=== PATIENT | female | born 1960 | race Caucasian/White ===

== ENCOUNTER 2016-10-07 13:55 | Emergency (ER) | payer MEDICARE, OTHER ==
[2016-10-07] MEDS ORDERED: IPRATROPIUM/ALBUTEROL SULFATE 3 ML AMPUL.NEB NEB ONE (14:07)
[2016-10-07] MEDS ORDERED: ACETAMINOPHEN 500 MG TABLET PO ONE (14:08)
[2016-10-07] MEDS ORDERED: FLUTICASONE/SALMETEROL 250-50 INHALER IH ONE (15:05)
--- NOTE | 2016-10-07 15:05 | ED Physician Documentation ---
Dyspnea - HISTORIAN Historian: patient - HPI Stated Complaint: sore throat, bosy aches Chief Complaint: Dyspnea Onset: days ago Duration: continues in ED Initiating Event: upper respiratory illness Associated Symptoms: chills, fever, productive cough Further Comments: yes (56 year old female patient presents with complaints of fever, chills, sore throat, productive cough, and dyspnea with exerction. Reports symptoms began on , becoming worse.) - ROS CONST: no problems EYES/ENT: none GI/: none NEURO/PSYCH: denies: headache MS/SKIN/LYMPH: none - PAST HX Lung Disease: COPD Surgeries/Procedures: other (T&A, myringotomy tubes, ovarian cyst removed) Other History: other (Seizures) Allergies/Adverse Reactions: Allergies Allergy/AdvReac Type Severity Reaction Status Date / Time Penicillins Allergy Verified 10/07/16 14:18 Sulfa (Sulfonamide Allergy Verified 10/07/16 14:18 Antibiotics) Home Medications: Ambulatory Orders Medication Instructions Recorded Phenytoin Sodium Extended 100 mg PO TID 03/21/12 [Dilantin] Albuterol Sulfate [Ventolin HFN] 2.5 mg NEB Q4 #25 vial 10/07/16 Ipratropium/Albuterol Sulfate 3 ml NEB BID #25 ampul.neb 10/07/16 [Duoneb] Prednisone 10 mg PO DAILY #30 tablet 10/07/16 - SOCIAL HX Smoking History: cigarettes (trying to quit) - FAMILY HX Family History: denies: none - VITAL SIGNS Vital Signs: Vital Signs Temp Pulse Resp BP Pulse Ox 99.9 F H 72 15 162/94 97 10/07/16 14:22 10/07/16 14:22 10/07/16 14:22 10/07/16 14:22 10/07/16 14:22 - REVIEWED ASSESSMENTS Nursing Assessment Reviewed: Yes Vitals Reviewed: Yes Progress - Progress Progress: Patient states she is out of her albuterol. States she does not have any maintenance inhalers at home. Will start on advair. Solumedrol given in ER. Faint inspiratory wheezes at discharge, patient states she can breath much better. Reviewed discharge instructions. Verbalized understanding. ED Results Lab/Radiology - Radiology Radiology Impressions: Underwear Finisher to anterior and lateral chest Clinical history: Cough Technique: Pa and lateral standing upright radiographs Findings: The lung smith are hyperinflated with flattening of the hemidiaphragms. There is no mass infiltrate or pleural effusions. Thoracic spondylosis is present. There is dextroscoliosis. Nipple shadows overlie the lung bases. Impression: Hyperinflation No acute infiltrate - Orders Orders: ED Orders Category Date Time Status CHEST 2 VIEW [CHEST P.A.&LAT 2 VIEWS] [RAD] Stat Exams 10/07/16 Ordered CBC/PLATELET/DIFF Stat Lab 10/07/16 14:39 Received CMP Stat Lab 10/07/16 14:39 Received Rapid Strep [GRP A STREP SCREEN] Stat Lab 10/07/16 Ordered Acetaminophen [Tylenol Extra Strength] Med 10/07/16 14:08 Discontinued 1,000 mg PO NOW ONE Ipratropium/Albuterol Sulfate [Duoneb] Med 10/07/16 14:07 Discontinued 3 ml NEB NOW ONE Dyspnea Physical Exam - EXAM General Appearance: moderate distress EENT: eye inspection normal, ENT inspection normal, pharynx normal, no signs of dehydration, HIREN, no nystagmus, TM's nml Respiratory: no pain on inspiration, speaks full sentences, prolonged expirations, wheezes (inspiratory), rhonchi. No: stridor CVS: reg. 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 Neuro/Psych: oriented x3, CN's nml as tested, motor nml, sensation nml, mood/ affect nml Discharge Clincal Impression: COPD exacerbation Prescriptions: Albuterol Sulfate [Ventolin HFN] 2.5 mg NEB Q4 #25 vial Ipratropium/Albuterol Sulfate [Duoneb] 3 ml NEB BID #25 ampul.neb Prednisone 10 mg PO DAILY #30 tablet Referrals: Ang Connor MD [Primary Care Provider] - 2 Days Home Medications: Ambulatory Orders Phenytoin Sodium Extended [Dilantin] 100 mg PO TID 03/21/12 Albuterol Sulfate [Ventolin HFN] 2.5 mg NEB Q4 #25 vial 10/07/16 Ipratropium/Albuterol Sulfate [Duoneb] 3 ml NEB BID #25 ampul.neb 10/07/16 Prednisone 10 mg PO DAILY #30 tablet 10/07/16 Condition: Stable Disposition: 01 HOME, SELF-CARE Decision to Admit: NO Decision Time: 16:15
[2016-10-07 15:07] LABS: BASOPHILS % 1.4 (0.0-1.5); EOSINOPHILS % 3.9 % (0.0-6.8); MEAN CORPUSCULAR HEMOGLOBIN 32.1 pg (28.0-34.0); MEAN CORPUSCULAR VOLUME 94.4 fl (80.0-100.0); MONOCYTES % 4.1 % (0.0-11.0); NEUTROPHILS # 3.3 # k/uL (1.4-7.7); eGFR (African) > 60; eGFR (Non-African) > 60
[2016-10-07] MEDS ORDERED: methylPREDNISolone SOD SUCC 125 MG/2 ML VIAL IVP ONE (15:16)
[2016-10-07 16:22] VITALS: BP 143/79
--- NOTE | 2016-10-07 17:03 | Diagnostic Imaging Report ---
[facility] [id number] [facility].[address] [address] Report Submission Date: Oct 07, 2016 2:55:32 PM CDT Patient Study Name: MERY PATIÑO Date: Oct 07, 2016 2:39:12 PM CDT Modality Type: CR Gender: F Description: CHEST : 64 Institution: [facility] Physician: TEAR VENEGAS (RECEIVING CLERK) - ER Dental Prosthetist to anterior and lateral chest Clinical history: Cough Technique: Pa and lateral standing upright radiographs Findings: The lung smith are hyperinflated with flattening of the hemidiaphragms. There is no mass infiltrate or pleural effusions. Thoracic spondylosis is present. There is dextroscoliosis. Nipple shadows overlie the lung bases. Impression: Hyperinflation No acute infiltrate Electronically signed on Oct 07, 2016 2:55:32 PM CDT by: Dann SULLIVAN
== END 2016-10-07 16:21 | disposition home or self-care (01) ==
LOC: ED 13:55
DX: J44.1 Chronic obstructive pulmonary disease with (acute) exacerbation (principal)
CPT/HCPCS: 71020; 80053; 80185; 85025; J2930; 87070; 87880; 99283

== ENCOUNTER 2017-09-08 20:22 | Emergency (ER) | payer MEDICARE, OTHER ==
[2017-09-08] MEDS ORDERED: methylPREDNISolone ACETATE 80 MG/ML VIAL IM ONE (20:35)
--- NOTE | 2017-09-08 20:39 | ED Physician Documentation ---
Skin Rash - HISTORIAN Historian: patient - HPI Chief Complaint: Skin Rash Onset: hours Timing: worse Duration: worse Location: trunk Quality: itchy Where: work Context: Medication Exposure: none Context: Food Exposure: none Further Comments: yes (56 year old female patient presents with complaints of itching rash on abdomen, face and bilateral forearms. 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 Concerned she has poison bunny. Took 1 benadry [employer]IOR PRODUCTION PLAN[employer] at 1700. Bathed and changed out of uniform after work. Denies any new soap, lotion, shampoo, chemical exposure or new foods.) - ROS CONST: none CVS/RESP: none EYES/ENT: none GI/: none MS/SKIN/LYMPH: none NEURO/PSYCH: none - PAST HX Past History: other (seizure; COPD) Allergies/Adverse Reactions: Allergies Allergy/AdvReac Type Severity Reaction Status Date / Time Penicillins Allergy Verified 10/07/16 14:18 Sulfa (Sulfonamide Allergy Verified 10/07/16 14:18 Antibiotics) Home Medications: Ambulatory Orders Medication Instructions Recorded Phenytoin Sodium Extended 100 mg PO TID 03/21/12 [Dilantin] Albuterol Sulfate [Ventolin HFN] 2.5 mg NEB Q4 #25 vial 10/07/16 Ipratropium/Albuterol Sulfate 3 ml NEB BID #25 ampul.neb 10/07/16 [Duoneb] - SOCIAL HX Smoking History: cigarettes - FAMILY HX Family History: denies: none - VITAL SIGNS Vital Signs: Vital Signs Temp Pulse Resp BP Pulse Ox 143/79 10/07/16 16:21 - REVIEWED ASSESSMENTS Nursing Assessment Reviewed: Yes Vitals Reviewed: Yes Progress - Progress Progress: Patient medicated with depo medrol in ER ED Results Lab/Radiology - Orders Orders: ED Orders Category Date Time Status methylPREDNISolone ACETATE [Depo-Medrol] Med 09/08/17 20:35 Once 80 mg IM NOW ONE Skin Rash Physical Exam - EXAM General Appearance: mild distress Skin: warm,dry, skin rash (across mid abdomen and back; fine macular rash; patient scratching frequently; no rash noted on face or arms) Location: trunk, back Character: asymmetric, macular, fine Symptoms: other (itching). No: warmth, tenderness, swelling EENT: eyes nml inspection, lips nml, gums nml, pharynx nml Respiratory: no resp distress, chest non-tender, breath sounds normal CVS: reg. rate & rhythm, heart sounds nml Neuro/Psych: oriented x3, CN's nml as tested, motor nml, sensation nml, mood/ affect nml Discharge Clincal Impression: Urticaria Referrals: Ang Connor MD [Primary Care Provider] - 2 Days Additional Instructions: Continue Benadryl 25-50mg by mouth every 6 hours until symptoms resolve Take either Claritan, Allergra, or Zyrtec daily until symptoms resolve. See your primary doctor or return to the ER if you have increase shortness of breath or difficulty breathing. Hives can be treated at home with the above Benadryl regimen. Condition: Stable Disposition: 01 HOME, SELF-CARE Decision to Admit: NO Decision Time: 20:41
[2017-09-08] MEDS ORDERED: LORATADINE 10 MG TABLET PO ONE (20:43)
[2017-09-08 21:13] VITALS: BP 147/81
== END 2017-09-08 21:15 | disposition home or self-care (01) ==
LOC: ED 20:22
DX: L50.9 Urticaria, unspecified (principal)
CPT/HCPCS: 96372; 99283; J1040